=== PATIENT | male | born 1945 | race Caucasian/White ===

== ENCOUNTER 2016-12-13 15:00 | Outpatient (RCR) ==
--- NOTE | 2016-12-04 16:38 | RS.OTEVAL ---
Subjective Date of Note: 12/04/16 Visit #: 1 Date of Evaluation: 12/04/16 Payer Source: MEDICARE Date of Onset/Injury/Change in Status: 06/20/16 Surgery Performed?: No Treatment Diagnosis: Left hand weakness, possible trigger finger. Treatment Side (optional): Left *Precautions: At risk for digits locking after flexion. Prior Level of Function.....Patient was independent with: ADL's, Self Care, Work /Vocation History of Condition/Mechanism of Injury: Pt reported a problem with Left index , long, and ring digit. Problem occurred in June of 2016 when golfing. Level of Function: Low- Pt has difficulty carrying objects, vacuuming, tying his shoes, fine motor tasks, gripping the golf club. Functional Limitations: Self Care, ADL's, Pushing, Pulling, Lifting, Carrying Current Complaints/Gains: Pt complains of pain with gripping items like a golf club. Pain in digits when they lock as he tries to make a fist. Pt has difficulty tying his shoes, vacuuming, sweeping, raking, laundry, Medical History Medical History: Hypertension, Arthritis Medical History Comments:: 2006- bypass heart surgery. Surgical History Comments:: Pt has 4 pass surgery. Hx Home Medications: heart medications Patient's Goals: To be able to senior interactive developer and use his left hand to play golf and make a full fist without pain. Pain Assessment - Pain Description Pain Description: Tightness, Sharp, Aching Pain Location: Left digits: ring, long, and index digit Pain Description: aches, and pulls Current Pain Intensity: 6 Worst Pain Intensity: 9 Other comments regarding pain:: Painful when digit locks and is pulled into extension. Functional Outcome Measures UE Functional Index: 68 - G Codes & Severity Modifier G Codes: Carrying, moving, and Handling,. Current CI. Goal CH Source of G Code score: Carrying Moving and handling Observation - Observation Inspection: Edema of the Left palm Posture: Normal Handedness: Right Additional Comments: Measurements of the hands. LUE: Index 7.6 CM, Long 7.2 cm , Ring 6.9 CM, small 6.0 CM. RUE: Index 8.0 CM, Long 7.7 CM, Ring 7.5 CM, Small 6.4 CM. Wrist at ulnar and radial styloid processes: Left 18.2 CM, RUE 17.7 Shoulder ROM: Bilaterally WFL's Shoulder Muscle Strength: Bilaterally WFL's Elbow ROM: Bilaterally WFL's Elbow Muscle Strength: Bilaterally WFL's Wrist ROM: Bilaterally WFL's Wrist Muscle Strength: Bilaterally WFL's - Black Top Paver Operator Strength Left Black Top Paver Operator Strength: 37.7 Right Black Top Paver Operator Strength: 52.3 Black Top Paver Operator Strength Dynamometer Testing Position: 2nd Position Sensation Right Upper Extremity: Intact/Normal Left Upper Extremity: Intact/Normal Sensation Description: Within Normal Limits Modalities - Treatment Modality: Ultrasound Parameters/Method Applied: .4 w/cm2 for 8 minutes to dorsal left MCP joints. Treatment Area: Left hand palm Patient Position: Sitting - Treatment Modality: Class 4 Laser Treatment Area: left palm Patient Position: Sitting - Hot Pack/Cryotherapy Treatment: Cryotherapy Interventions - Exercise/Activities Exercise/Activities/Manual Therapy: Manual therapy to left hand MCP joints of index, long, and ring digit., Isometric to bilateral shoulders HOME EXERCISE PROGRAM: isometric exercises: for shoulders, contrast bath, epsom salts, ice pack, vinegar and brown bag. - Other Treatment/Services Other Services/Treatments: Contrast Bath - Objective Findings Objective Findings:: catching of left ring digit, long, digit and index digit after completing gripping. - Charges Total Direct Minutes: 60 Total Treatment Time: 30 Procedures billed for this date of service:: US Stephanie, CP Assessment Assessment: Pt would benefit from skilled OT to decrease symptoms and pain of trigger fingers of left hand. Patient Education: Education of diagnosis, Home Exercise Program, Activity Modification, Education of Plan of Care Rehab Potential: Good Problems/Comments: pain with gripping, digits catch at MCP joint and are painful Short Term Goals Goal #1: Decrease edema of Left hand by .5 CM Goal to be met by: 12/18/16 Goal #2: To decrease catching of Left digits during flexion into a fist 1/5 X. Goal to be met by: 12/18/16 Goal #3: Pt to be independent with home exercise program Goal to be met by: 11/20/16 Goal #4: To increase mass senior interactive developer of LUE hand to 40# Goal to be met by: 12/18/16 Oracle Database Administrator Goals Goal #1: Pt to increase mass senior interactive developer strength to 47# Goal to be met by: 01/08/17 Goal #2: Pt to be able to tie his shoes. Goal to be met by: 01/08/17 Goal #3: Pt to be independent with home exercise program. Goal to be met by: 01/08/17 Goal #4: Pt pain in full fist to decrease to 0/10. Goal to be met by: 01/08/17 Plan - Treatment to be provided Procedures: Therapeutic Exercises, Therapeutic Activity, Manual Therapy, Massage , Patient Education Modalities: Ultrasound/Phonophoresis, Class IV Laser, Cryotherapy - Treatment Plan Frequency: 3 X week Duration: 6 weeks ORDER # VISITS AND/OR THROUGH DATE: 01/15/17 - Treatment Code (1) Trigger finger of all digits of left hand Code(s): M65.342
--- NOTE | 2016-12-09 08:53 | RS.OTDNOTE ---
Subjective Date of Note: 12/06/16 Visit #: 2 Date of Evaluation: 12/04/16 Payer Source: MEDICARE Date of Onset/Injury/Change in Status: 06/20/16 Surgery Performed?: No Treatment Diagnosis: Left hand weakness, possible trigger finger. Treatment Side (optional): Left *Precautions: At risk for digits locking after flexion. Prior Level of Function.....Patient was independent with: ADL's, Self Care, Work /Vocation History of Condition/Mechanism of Injury: Pt reported a problem with Left index , long, and ring digit. Problem occurred in June of 2016 when golfing. Level of Function: Low- Pt has difficulty carrying objects, vacuuming, tying his shoes, fine motor tasks, gripping the golf club. Functional Limitations: Self Care, ADL's, Pushing, Pulling, Lifting, Carrying Current Complaints/Gains: Pt states he was able to play golf today without " much difficulity." States he has bulit up handles on his clubs that has helped. States he has had trigger finger trouble for 3+ years now on/off and that the laser tx has helped in the past. States he is trying to avoid surgery at all costs. Pain Assessment - Pain Description Pain Description: Tightness, Sharp, Aching Pain Location: Left digits: ring, long, and index digit Pain Description: aches, and pulls Modalities - Treatment Modality: Ultrasound Parameters/Method Applied: .04w/cm2 x 10 mins Treatment Area: volar hand Patient Position: Sitting - Treatment Modality: Class 4 Laser Parameters/Method Applied: Edema/chronic pain protocol Treatment Area: volar/dorsal hand/wrist Patient Position: Sitting - Hot Pack/Cryotherapy Treatment: Cryotherapy (CP x 10 mins following) Interventions - Exercise/Activities Exercise/Activities/Manual Therapy: Manual therapy to left hand MCP joints of index, long, and ring digit. Isometric to bilateral shoulders. HOME EXERCISE PROGRAM: isometric exercises: for shoulders, contrast bath, epsom salts, ice pack, vinegar and brown bag. - Objective Findings Objective Findings:: catching of left ring digit, long, digit and index digit after completing gripping. - Charges Total Direct Minutes: 35 Total Treatment Time: 50 Procedures billed for this date of service:: CP US MT (0 charge laser) Assessment Patient Education: Education of diagnosis, Body/Joint mechanics, Home Exercise Program, Home Safety, Activity Modification, Education of Plan of Care Patient demonstrates compliance with HEP?: Yes Short Term Goals Goal #1: Decrease edema of Left hand by .5 CM Goal to be met by: 12/18/16 Progress towards goal: Progressing Goal #2: To decrease catching of Left digits during flexion into a fist 1/5 X. Goal to be met by: 12/18/16 Progress towards goal: Progressing Goal #3: Pt to be independent with home exercise program Goal to be met by: 11/20/16 Progress towards goal: Progressing Goal #4: To increase mass proposal development manager of LUE hand to 40# Goal to be met by: 12/18/16 Fagoting Machine Operator Goals Goal #1: Pt to increase mass proposal development manager strength to 47# Goal to be met by: 01/08/17 Progress towards goal: Progressing Goal #2: Pt to be able to tie his shoes. Goal to be met by: 01/08/17 Progress towards goal: Progressing Goal #3: Pt to be independent with home exercise program. Goal to be met by: 01/08/17 Progress towards goal: Progressing Goal #4: Pt pain in full fist to decrease to 0/10. Goal to be met by: 01/08/17 Plan PLAN OF CARE EXPIRES ON:: 01/15/17 ORDER # VISITS AND/OR THROUGH DATE: 01/15/17 PLAN: Continue Plan of Care Frequency: 2 X week Duration: 4 weeks
--- NOTE | 2016-12-13 15:43 | RS.OTDNOTE ---
Subjective Date of Note: 12/11/16 Visit #: 3 Date of Evaluation: 12/04/16 Payer Source: MEDICARE Date of Onset/Injury/Change in Status: 06/20/16 Surgery Performed?: No Treatment Diagnosis: Left hand weakness, possible trigger finger. Treatment Side (optional): Left *Precautions: At risk for digits locking after flexion. Prior Level of Function.....Patient was independent with: ADL's, Self Care, Work /Vocation History of Condition/Mechanism of Injury: Pt reported a problem with Left index , long, and ring digit. Problem occurred in June of 2016 when golfing. Level of Function: Low- Pt has difficulty carrying objects, vacuuming, tying his shoes, fine motor tasks, gripping the golf club. Functional Limitations: Self Care, ADL's, Pushing, Pulling, Lifting, Carrying Current Complaints/Gains: Wilder states he has been able to tie his shoes the past few days and button small buttons of his shirt. States he sleeps with his hands around his arm to avoid curling up and is ed on use of hand/digit splints. Pain Assessment - Pain Description Pain Description: Tightness, Sharp, Aching Pain Location: Left digits: ring, long, and index digit Pain Description: aches, and pulls Modalities - Treatment Modality: Ultrasound Parameters/Method Applied: .04w/cm2 x 10 mins Treatment Area: volar hand Interventions - Exercise/Activities Exercise/Activities/Manual Therapy: Manual therapy to left hand MCP joints of index, long, and ring digit. Pt ed and performed tendon glides along with yellow digi-flex and wrist flexion and extension ex's/PROM. HOME EXERCISE PROGRAM: isometric exercises: for shoulders, contrast bath, epsom salts, ice pack, vinegar and brown bag. - Other Treatment/Services Other Services/Treatments: Paraffin - Objective Findings Objective Findings:: catching of left ring digit, long, digit and index digit after completing gripping. - Charges Total Direct Minutes: 35 Total Treatment Time: 45 Procedures billed for this date of service:: Paraffin, EX, US Assessment Patient Education: Education of diagnosis, Body/Joint mechanics, Home Exercise Program, Home Safety, Activity Modification, Education of Plan of Care Patient demonstrates compliance with HEP?: Yes Short Term Goals Goal #1: Decrease edema of Left hand by .5 CM Goal to be met by: 12/18/16 Progress towards goal: Met Goal #2: To decrease catching of Left digits during flexion into a fist 1/5 X. Goal to be met by: 12/18/16 Progress towards goal: Partially Met Comments: Ring finger only Goal #3: Pt to be independent with home exercise program Goal to be met by: 11/20/16 Progress towards goal: Partially Met Goal #4: To increase mass envelope machine operator of LUE hand to 40# Goal to be met by: 12/18/16 Halfway Goals Goal #1: Pt to increase mass envelope machine operator strength to 47# Goal to be met by: 01/08/17 Progress towards goal: Progressing Goal #2: Pt to be able to tie his shoes. Goal to be met by: 01/08/17 Progress towards goal: Progressing Goal #3: Pt to be independent with home exercise program. Goal to be met by: 01/08/17 Progress towards goal: Progressing Goal #4: Pt pain in full fist to decrease to 0/10. Goal to be met by: 01/08/17 Progress towards goal: Progressing Plan PLAN OF CARE EXPIRES ON:: 01/15/17 ORDER # VISITS AND/OR THROUGH DATE: 01/15/17 PLAN: Continue Plan of Care Frequency: 2 X week Duration: 2 weeks
--- NOTE | 2016-12-16 08:40 | RS.OTDNOTE ---
Subjective Date of Note: 12/13/16 Visit #: 4 Date of Evaluation: 12/04/16 Payer Source: MEDICARE Date of Onset/Injury/Change in Status: 06/20/16 Surgery Performed?: No Treatment Diagnosis: Left hand weakness, possible trigger finger. Treatment Side (optional): Left *Precautions: At risk for digits locking after flexion. Prior Level of Function.....Patient was independent with: ADL's, Self Care, Work /Vocation History of Condition/Mechanism of Injury: Pt reported a problem with Left index , long, and ring digit. Problem occurred in June of 2016 when golfing. Level of Function: Low- Pt has difficulty carrying objects, vacuuming, tying his shoes, fine motor tasks, gripping the golf club. Functional Limitations: Self Care, ADL's, Pushing, Pulling, Lifting, Carrying Current Complaints/Gains: Pt states he is pleased with progress of his hand. States tying his shoes remains "easier now than in years." Pt agreeable to tx one time next wk and to perform HEP and CP application. Pain Assessment - Pain Description Pain Description: Tightness, Sharp, Aching Pain Location: Left digits: ring, long, and index digit Pain Description: aches, and pulls Modalities - Treatment Modality: Ultrasound Parameters/Method Applied: .04w/cm2 x 10 mins Treatment Area: volar hand Patient Position: Sitting - Hot Pack/Cryotherapy Treatment: Cryotherapy (x 10 mins) Comments:: Ice massage performed x 6+ mins Interventions - Exercise/Activities Exercise/Activities/Manual Therapy: Manual therapy to left hand MCP joints of index, long, and ring digit. Pt ed and performed tendon glides along with yellow digi-flex and wrist flexion and extension ex's/PROM. HOME EXERCISE PROGRAM: isometric exercises: for shoulders, contrast bath, epsom salts, ice pack, vinegar and brown bag. - Objective Findings Objective Findings:: catching of left ring digit, long, digit and index digit after completing gripping. - Charges Total Direct Minutes: 35 Total Treatment Time: 42 Procedures billed for this date of service:: EX US CP Assessment Patient Education: Education of diagnosis, Body/Joint mechanics, Home Exercise Program, Home Safety, Activity Modification, Education of Plan of Care Patient demonstrates compliance with HEP?: Yes Short Term Goals Goal #1: Decrease edema of Left hand by .5 CM Goal to be met by: 12/18/16 Progress towards goal: Met Goal #2: To decrease catching of Left digits during flexion into a fist 1/5 X. Goal to be met by: 12/18/16 Progress towards goal: Met Goal #3: Pt to be independent with home exercise program Goal to be met by: 11/20/16 Progress towards goal: Met Goal #4: To increase mass bundling machine operator of LUE hand to 40# Goal to be met by: 12/18/16 Longterm Goals Goal #1: Pt to increase mass bundling machine operator strength to 47# Goal to be met by: 01/08/17 Progress towards goal: Progressing Goal #2: Pt to be able to tie his shoes. Goal to be met by: 01/08/17 Progress towards goal: Met Goal #3: Pt to be independent with home exercise program. Goal to be met by: 01/08/17 Progress towards goal: Met Goal #4: Pt pain in full fist to decrease to 0/10. Goal to be met by: 01/08/17 Progress towards goal: Progressing Plan PLAN OF CARE EXPIRES ON:: 01/15/17 ORDER # VISITS AND/OR THROUGH DATE: 01/15/17 PLAN: Continue Plan of Care Frequency: 1 X week Duration: 2 weeks
== END 2016-12-17 ==
PROVIDERS: ATTEND Internal Medicine
DX: M62.81 Muscle weakness (generalized) (principal)

== ENCOUNTER 2016-12-31 11:00 | Outpatient (RCR) ==
--- NOTE | 2016-12-19 14:02 | RS.OTDNOTE ---
Subjective Date of Note: 12/18/16 Visit #: 5 Date of Evaluation: 12/04/16 Payer Source: MEDICARE Date of Onset/Injury/Change in Status: 06/20/16 Surgery Performed?: No Treatment Diagnosis: Left hand weakness, possible trigger finger. Treatment Side (optional): Left *Precautions: At risk for digits locking after flexion. Prior Level of Function.....Patient was independent with: ADL's, Self Care, Work /Vocation History of Condition/Mechanism of Injury: Pt reported a problem with Left index , long, and ring digit. Problem occurred in June of 2016 when golfing. Level of Function: Low- Pt has difficulty carrying objects, vacuuming, tying his shoes, fine motor tasks, gripping the golf club. Functional Limitations: Self Care, ADL's, Pushing, Pulling, Lifting, Carrying Current Complaints/Gains: Pt continues stating he is pleased with finger progress and being able to tie his shoes. States he feels his strength is increasing and good compliance with stretching ex/HEP. Pain Assessment - Pain Description Pain Location: Left digits: ring, long, and index digit Pain Description: aches, and pulls Modalities - Treatment Modality: Ultrasound Parameters/Method Applied: 1.5w/cm2 x 7 mins and x 5 mins of 20% pulsed US to volar MCP joint. Patient Position: Sitting - Hot Pack/Cryotherapy Treatment: Cryotherapy (Ice massage performed x 6+ mins to volar palm) Interventions - Exercise/Activities Exercise/Activities/Manual Therapy: Manual therapy to left hand MCP joints of index, long, and ring digit. Pt ed and performed tendon glides along with red/ green digi-flex and wrist flexion and extension ex's/PROM. Rubberband digit extension also performed x 10. HOME EXERCISE PROGRAM: isometric exercises: for shoulders, contrast bath, epsom salts, ice pack, vinegar and brown bag. - Objective Findings Objective Findings:: catching of left ring digit, long, digit and index digit after completing gripping. - Charges Total Direct Minutes: 50 Total Treatment Time: 50 Procedures billed for this date of service:: CP US EX Assessment Patient Education: Education of diagnosis, Body/Joint mechanics, Home Exercise Program, Home Safety, Activity Modification, Education of Plan of Care Patient demonstrates compliance with HEP?: Yes Short Term Goals Goal #1: Decrease edema of Left hand by .5 CM Goal to be met by: 12/18/16 Progress towards goal: Met Goal #2: To decrease catching of Left digits during flexion into a fist 1/5 X. Goal to be met by: 12/18/16 Progress towards goal: Met Goal #3: Pt to be independent with home exercise program Goal to be met by: 11/20/16 Progress towards goal: Met Goal #4: To increase mass sole buffer of LUE hand to 40# Goal to be met by: 12/18/16 Progress towards goal: Met Alf Goals Goal #1: Pt to increase mass sole buffer strength to 47# Goal to be met by: 01/08/17 Progress towards goal: Progressing Goal #2: Pt to be able to tie his shoes. Goal to be met by: 01/08/17 Progress towards goal: Met Goal #3: Pt to be independent with home exercise program. Goal to be met by: 01/08/17 Progress towards goal: Met Goal #4: Pt pain in full fist to decrease to 0/10. Goal to be met by: 01/08/17 Progress towards goal: Partially Met Plan PLAN OF CARE EXPIRES ON:: 01/15/17 ORDER # VISITS AND/OR THROUGH DATE: 01/15/17 PLAN: Continue Plan of Care Frequency: 1 X week Duration: 2 weeks
--- NOTE | 2016-12-25 13:46 | RS.OTCXNS ---
OT Case Note Date of Scheduled Appointment: 12/25/16 Type: Cancel ( states pt will call back to reschedule)
--- NOTE | 2016-12-31 14:40 | RS.OTDNOTE ---
Subjective Date of Note: 12/31/16 Visit #: 6 Date of Evaluation: 12/04/16 Payer Source: MEDICARE Date of Onset/Injury/Change in Status: 06/20/16 Surgery Performed?: No Treatment Diagnosis: Left hand weakness, possible trigger finger. Treatment Side (optional): Left *Precautions: At risk for digits locking after flexion. Prior Level of Function.....Patient was independent with: ADL's, Self Care, Work /Vocation History of Condition/Mechanism of Injury: Pt reported a problem with Left index , long, and ring digit. Problem occurred in June of 2016 when golfing. Level of Function: Low- Pt has difficulty carrying objects, vacuuming, tying his shoes, fine motor tasks, gripping the golf club. Functional Limitations: Self Care, ADL's, Pushing, Pulling, Lifting, Carrying Current Complaints/Gains: Pt states good compliance with HEP of stretching along with applying ice packs. States he is pleased with progress of hand and is agreeable to DC at this time. Pain Assessment - Pain Description Pain Description: Dull (Pain in PIP of ring finger) Pain Location: Left digits: ring, long, and index digit Pain Description: aches, and pulls Current Pain Intensity: 0 Worst Pain Intensity: 2 Modalities - Treatment Modality: Ultrasound Parameters/Method Applied: 1.5w/cm2 x 10 mins Patient Position: Sitting - Hot Pack/Cryotherapy Treatment: Cryotherapy Interventions - Exercise/Activities Exercise/Activities/Manual Therapy: Manual therapy to left hand MCP joints of index, long, and ring digit. Pt ed and performed tendon glides along with red/ green digi-flex and wrist flexion and extension ex's/PROM. Rubberband digit extension also performed x HEP performed. HOME EXERCISE PROGRAM: isometric exercises: for shoulders, contrast bath, epsom salts, ice pack, vinegar and brown bag. - Objective Findings Objective Findings:: catching of left ring digit, long, digit and index digit after completing gripping. - Charges Total Direct Minutes: 35 Total Treatment Time: 45 Procedures billed for this date of service:: CP US EX Assessment Patient Education: Education of diagnosis, Body/Joint mechanics, Home Exercise Program, Home Safety, Activity Modification, Education of Plan of Care Patient demonstrates compliance with HEP?: Yes Short Term Goals Goal #1: Decrease edema of Left hand by .5 CM Goal to be met by: 03/01/17 Progress towards goal: Met Goal #2: To decrease catching of Left digits during flexion into a fist 1/5 X. Goal to be met by: 12/18/16 Progress towards goal: Met Goal #3: Pt to be independent with home exercise program Goal to be met by: 11/20/16 Progress towards goal: Met Goal #4: To increase mass hvac sales engineer of LUE hand to 40# Goal to be met by: 12/18/16 Progress towards goal: Met Longterm Goals Goal #1: Pt to increase mass hvac sales engineer strength to 47# Goal to be met by: 01/08/17 Progress towards goal: Met Goal #2: Pt to be able to tie his shoes. Goal to be met by: 01/08/17 Progress towards goal: Met Goal #3: Pt to be independent with home exercise program. Goal to be met by: 01/08/17 Progress towards goal: Met Goal #4: Pt pain in full fist to decrease to 0/10. Goal to be met by: 01/08/17 Progress towards goal: Met Plan PLAN OF CARE EXPIRES ON:: 01/15/17 ORDER # VISITS AND/OR THROUGH DATE: 01/15/17 PLAN: Plan for Discharge Frequency: DC Duration: DC
== END 2017-01-17 ==
PROVIDERS: ATTEND Internal Medicine
DX: R53.1 Weakness (principal); R29.898 Other symptoms and signs involving the musculoskeletal system

== ENCOUNTER 2018-04-07 06:34 | Outpatient (CLI) ==
--- NOTE | 2018-04-07 13:33 | STRESSECHO ---
Date of Test: 04/07/18 Ordering Physician: DR. BRADFORD MACK Occupation: RETIRED Reason for Exam: DILATED CARDIOMYOPATHY, HX CABG, HTN, SOB Smoking History: NO Height: 68" Weight: 210 LBS Current Medications: ZAROLYN, ZESTRIL, LIPITOR, TRICOR, METFORMIN, ALDACTONE, PROTONIX, COREG, BUMEX Resting EKG: SINUS RHYTHM/ NO ACUTE CHANGES Target Heart Rate: 125/148 S-T SEGMENT STAGE MPH/GRADE HEART RATE BPM BLOOD PRESSURE MMHG RHYTHM +/- ELEVATION DEPRESSION SYMPTOMS,COMMENTS AT REST 75 132/80 SR X NONE 1 1.7/10% 103 126/78 SR X NONE 2 2.5/12% 3 3.4/14% 4 4.2/16% 5 5.0/18% Immediately After 116 132/72 SR X FATIGUE/ SOB Minutes Post Exercise 5:00 76 122/76 SR X NO COMMENTS Minutes Post Exercise DURATION OF EXERCISE: 5:07 MAXIMUM HEART RATE REACHED: 116 REASON FOR TERMINATION: FATIGUE--SHORT OF BREATH 99% OXYGEN SATURATION WITH EXERCISE METS: 7.0 INTERPRETATION: 1. NO EVIDENCE OF ISCHEMIA BY ST-T WAVE 2. NO CHEST PAIN OR CHEST DISCOMFORT 3. NO ARRHYTHMIAS 4. BLOOD PRESSURE RESPONSE: NORMAL WITH EXERCISE LEFT VENTRICULAR CONTRACTILITY/ LEFT VENTRICLE HYPOKINETIC AT REST AND IMPROVED LEFT VENTRICLE CONTRACTILITY WITH EXERCISE MTDD
--- NOTE | 2018-04-07 13:36 | ECHOSTRESS ---
Date of Exam: 04/07/18 Ordering Physician: DR. BRADFORD MACK Reason for Echo: DILATED CARDIOMYOPATHY, CABG, HTN, SOB, STRESS TEST--NO ISCHEMIA M-Mode Normal Adult Results LV Dimensions Normal Adult Results AoV Opening excursions >1.6 LVEDD-base- 3.5-5.8 Ao root dimensions 2.0-3.7 LVESD-base- 3.1-4.6 L. Atrium dimensions 1.9-3.8 Post. Wall thickness 0.8-1.1 IV septum (thickness) 0.7-1.2 Post. Wall excursion 0.72-1.3 Septal motion Systolic motion R. Ventricular cavity 1.5-2.0 LVEF 60% Paradoxical septal wall motion 2-D: HYPOKINETIC LEFT VENTRICLE AT REST AND IMPROVED LEFT VENTRICULAR CONTRACTILITY WITH EXERCISE M-MODE: MV: AV: TV: PV: CHAMBER SIZE: WALL MOTION: HYPOKINETIC LEFT VENTRICLE AT REST AND IMPROVED LEFT VENTRICULAR CONTRACTILITY WITH EXERCISE PERICARDIUM: INTERPRETATION: 1. HYPOKINETIC LEFT VENTRICLE AT REST AND IMPROVED LEFT VENTRICULAR CONTRACTILITY WITH EXERCISE MTDD
== END 2018-04-07 06:35 | disposition home or self-care (01) ==
LOC: CAR 06:34
PROVIDERS: ATTEND Internal Medicine
DX: R06.02 Shortness of breath (principal); I10 Essential (primary) hypertension; I42.0 Dilated cardiomyopathy; Z95.1 Presence of aortocoronary bypass graft
CPT/HCPCS: 93005; 93010

== ENCOUNTER 2019-03-29 14:16 | Outpatient (CLI) ==
--- NOTE | 2019-03-29 15:45 | DI ---
EXAM: Two views of the chest. History: Chest pain. Comparison: Chest radiograph 03/19/2019 Findings: Heart is mildly enlarged. Sternotomy wires. Atherosclerotic vascular calcifications. No focal consolidation. No appreciable pleural fluid and no pneumothorax. No acute osseous abnormalit ies. Impression: Mild cardiomegaly without acute disease in the chest
== END 2019-03-29 14:17 | disposition home or self-care (01) ==
LOC: RAD 14:16
PROVIDERS: ATTEND Internal Medicine
DX: R07.89 Other chest pain (principal); I10 Essential (primary) hypertension